=== PATIENT | female | born 1955 ===

== ENCOUNTER 2018-09-30 10:04 | Emergency (ER) | payer MEDICARE, MEDICAID, SELFPAY ==
--- NOTE | 2018-09-30 10:16 | NUR.NOTE ---
pt states that 3 days ago she noticed a slight pain in teeth 24 and 23 on Tuesday pain progressed to pulsating 9/10 pain upon awaking this morning pt states that pain is 10/10 and states that she feels swelling in her lower jaw focusing on that tooth and radiating to both cheeks. teeth are both loose Nursing Note:
[2018-09-30 10:20] VITALS: BP 136/85; PULSE 93; RESP 16; TEMP 37.2; O2SAT 95
--- NOTE | 2018-09-30 11:11 | W.ED.GENAD ---
Discharge Plan Disposition Patient Disposition: HOME Condition: Stable Discharge Details Chief Complaint: DentalOral Clinical Impression: Dental abscess Primary Care Provider: Christie,Local ED Provider: Geetha Brannon Home Meds and New Rx's Prescriptions: New oxycodone-acetaminophen [Percocet] 5-325 mg tablet 1 tab PO Q8H PRN PRN (Reason: pain) Qty: 6 RF: 0 penicillin V potassium 500 mg tablet 500 mg PO QID Qty: 27 RF: 0 Discharge Instructions Instructions: Penicillin V (By mouth), Oxycodone/Acetaminophen (By mouth), Dental Abscess (ED) Additional Instructions: Please return to the emergency department if you develop any new or worsening symptoms or if you become otherwise concerned. It is extremely important that you make an appointment to be seen by your dentist and your primary care doctor as well as soon as possible in follow-up for this visit. Please do not take more than 2000 mg of Tylenol total on days that you are also taking Percocet. You may also take 400 mg of ibuprofen every 8 hours for pain. Do not drive, operate machinery, make important decisions, or take any other sedating drugs while you are taking Percocet. Discharge Data Discharge Date/Time-TO BE ENTERED AT DEPARTURE: 09/30/18 11:44 Medical Decision Making Raine Rooney is a 8-year-old woman with history of depression presenting to the emergency department 3 days of tooth pain and swelling of the associated gingiva. On exam there is erythema and edema of the gingiva surrounding tooth 23. There is no elevation of the tongue. Exam/history is not consistent with TPA, RPA, abscess, Deangelo's angina, other deep space infection, sepsis, impending airway compromise. Concern for dental infection. Plan for antibiotics. Patient reports that she has appointment with her dentist in 2 days. I had a lengthy discussion with patient regarding home care, return to emergency department precautions, and importance of outpatient follow-up with her dentist. She verbalized understanding of the plan and is amenable. Medical Records Medical records reviewed: Yes I reviewed the patient's medical records. HPI General Mode of arrival: ambulatory. Date/Time Provider Initiated Documentation: 09/30/18 11:11. Limitations to Documentation: no limitations. Information obtained by: patient, RN notes reviewed and old records reviewed. HPI Narrative: Raine Rooney is a 62-year-old woman with history of depression presenting to the emergency department with dental pain. Patient reports that 3 days ago she noticed that 1 of her lower teeth seemed loose and somewhat painful. She reports that pain has been increasing since that time, and she has noticed some swelling along her lower left gums in the area of the tooth. Patient reports that she has been eating and drinking as usual. She has not had any difficulty or pain swallowing. No drooling, no fevers, no facial swelling, no shortness of breath, no cough, no nausea/vomiting/diarrhea, no rash. Feels otherwise well in her usual state of health. No trauma to the mouth or tooth. Related Data Home Medications Medication Instructions Recorded Confirmed oxycodone-acetaminophen [Percocet] 1 tab PO Q8H PRN PRN #6 tab 09/30/18 penicillin V potassium 500 mg PO QID #27 tab 09/30/18 Previous Rx's Medication Instructions Recorded oxycodone-acetaminophen [Percocet] 1 tab PO Q8H PRN PRN #6 tab 09/30/18 penicillin V potassium 500 mg PO QID #27 tab 09/30/18 Allergies Allergy/AdvReac Type Severity Reaction Status Date / Time No Known Allergies Allergy Unverified 09/30/18 10:24 General Stated Complaint: DentalOral CHRIS: 3 Review of Systems Review of Systems Constitutional: denies fevers Eyes: denies eye pain ENT: denies facial pain, sore throat, reports dental pain Cardiovascular: denies chest pain Respiratory: denies SOB, cough GI: denies abdominal pain, vomiting, diarrhea : denies flank pain MSK: denies back pain, neck pain, arthralgias, myalgias Skin: denies rash Neuro: denies headaches, numbness, weakness [facility] Social History Smoking/Tobacco Use Status: Current every day Exam Narrative Exam Narrative: Constitutional: well and [id number], pleasant, conversing normally HENT: head atraumatic/normocephalic/normal inspection, mucous membranes moist. tooth 23 with mild laxity, associated gingiva with mild edema and erythema. No fluctuance, no abscess. Mild tenderness along left mandible without edema. No facial edema. No facial rash or skin changes. No other intraoral lesion. Posterior pharynx normal. Normal voice, handling secretions without issue. No elevation of the tongue. Eyes: conjunctiva normal, sclera normal, pupils 3mm b/l Neck: no stridor, normal ROM, trachea midline Resp: normal work of breathing, LCTAB Cardio: normal rate, normal rhythm, no murmur appreciated Skin: warm, dry, normal color, no rash Neuro: alert, not altered, grossly non-focal, normal tone Ext: Moving all extremities equally Psych: normal mood, normal affect, normal behavior Course Vital Signs Temperature 37.2 C 09/30/18 10:20 Pulse 93 H 09/30/18 10:20 Respiratory Rate 16 09/30/18 10:20 Blood Pressure 136/85 09/30/18 10:20 Pulse Oximetry 95 09/30/18 10:20 Temperature 37.2 C 09/30/18 10:20 Temperature Source Skin 09/30/18 10:20 Pulse 93 H 09/30/18 10:20 Respiratory Rate 16 09/30/18 10:20 Respiratory Effort 09/30/18 10:25 Blood Pressure 136/85 09/30/18 10:20 Blood Pressure Position Sitting 09/30/18 10:20 Pulse Oximetry 95 09/30/18 10:20 Oxygen Delivery Method Room Air 09/30/18 10:20 Oxygen Flow Rate 0 09/30/18 10:20 Pain Level 9 09/30/18 10:20
[2018-09-30] MEDS: Penicillin V POTASSIUM 500 MG TAB PO (11:37)
== END 2018-09-30 11:44 | disposition home or self-care (01) ==
LOC: ER 11:53
PROVIDERS: Emergency Provider Student in an Organized Health Care Education/Training Program
DX: R68.84 Jaw pain (principal); K04.7 Periapical abscess without sinus
CPT/HCPCS: 99283

== ENCOUNTER 2021-12-17 12:25 | Outpatient (REF) | payer MEDICAID, SELFPAY ==
[2021-12-17 13:39] LABS: TSH 0.82 uIU/mL (0.36-3.74)
[2021-12-17 14:13] LABS: Vitamin D 25 Total 16.2 ng/mL (30-100)
== END 2021-12-17 12:26 | disposition home or self-care (01) ==
LOC: NCHCN 12:25
PROVIDERS: Visit Provider Nurse Practitioner Family
DX: F32.1 Major depressive disorder, single episode, moderate (principal)
CPT/HCPCS: 82306; 84443

== ENCOUNTER 2022-02-02 16:20 | Outpatient (REF) | payer MEDICARE, MEDICAID, SELFPAY ==
[2022-02-02 15:51] LABS: BUN 15 mg/dL (7-18); CREATININE 0.8 mg/dL (0.55-1.02); Calcium 9.1 mg/dL (8.5-10.1); Calculated LDL 173 mg/dL (<100); Chloride 104 mmol/L (98-107); Cholesterol 268 mg/dL (<200); Glucose 101 mg/dL (74-106); HDL Cholesterol 50 mg/dL (40-60); Sodium 140 mmol/L (136-145); Triglyceride 225 mg/dL (<150)
== END 2022-02-02 16:21 | disposition home or self-care (01) ==
LOC: NCHCN 16:20
PROVIDERS: Visit Provider Nurse Practitioner Family
DX: Z00.00 Encounter for general adult medical examination without abnormal findings (principal); Z51.81 Encounter for therapeutic drug level monitoring
CPT/HCPCS: 80048; 80061

== ENCOUNTER 2023-01-13 12:19 | Outpatient (REF) | payer OTHER, MEDICAID, SELFPAY ==
[2023-01-13 15:13] LABS: HCT 37.4 % (36.0-46.0); HGB 12.2 g/dL (11.2-15.7); MCH 27.4 pg (27.0-33.0); MCHC 32.6 % (32.0-36.0); MCV 84 fL (80-95); MPV 9.2 fL (8.0-11.0); Platelet Count 274 10^3/uL (130-400); RBC 4.45 10^6/uL (3.93-5.22); RDW 13.5 % (11.7-14.6); RDW-SD 41.8 fL; WBC 4.43 10^3/uL (4.4-10.8)
[2023-01-13 15:51] LABS: Hemoglobin A1C 5.4 % (<5.7); Vitamin D 25 Total 18.3 ng/mL (30-100)
[2023-01-13 15:56] LABS: Calculated LDL 103 mg/dL (<100); Cholesterol 185 mg/dL (<200); Ferritin 22 ng/mL (8-252); Folate 18.1 ng/mL (8.6-20.0); HDL Cholesterol 44 mg/dL (40-60); Triglyceride 194 mg/dL (<150); Vitamin B12 608 pg/mL (193-986)
== END 2023-01-13 12:20 | disposition home or self-care (01) ==
LOC: NCHCN 12:19
PROVIDERS: Visit Provider Nurse Practitioner Family
DX: E78.9 Disorder of lipoprotein metabolism, unspecified (principal); F32.1 Major depressive disorder, single episode, moderate
CPT/HCPCS: 80061; 82306; 85027; 82607; 82728; 82746; 83036

== ENCOUNTER → 2023-04-21 03:35 | Outpatient (CLI) | payer OTHER, MEDICAID, SELFPAY ==
--- NOTE | 2023-04-21 13:00 | DI.DEXA_ITS ---
Exam(s) XR DEXA BONE DENSITY W/WO BRIANNA EXAM: XR DEXA BONE DENSITY W/WO BRIANNA CLINICAL HISTORY: menopausal z78.0 screening for osteoporosis z13.820 TECHNIQUE: COMPARISON: No exams were available for comparison FINDINGS: Lateral Spine Image: Unremarkable. No compression deformities identified. Left hip: Total T-Score: -1.0 Total Z-Score: 0.2 T- and Z-scores: Within normal limits. Lumbar Spine: Total T-Score: -0.8 Total Z-Score: 1.0 T- and Z-scores: Within normal limits. IMPRESSION: No evidence of osteoporosis.
== END ==
PROVIDERS: Visit Provider Nurse Practitioner Family
DX: Z78.0 Asymptomatic menopausal state (principal); Z13.820 Encounter for screening for osteoporosis
CPT/HCPCS: 77080

== ENCOUNTER 2023-10-12 17:55 | Outpatient (REF) | payer OTHER, MEDICAID, SELFPAY ==
[2023-10-12 15:57] LABS: Anion Gap 10.4 mmol/L (3-11); BUN 14 mg/dL (7-18); CO2 25.6 mmol/L (21.0-32.0); CREATININE 0.8 mg/dL (0.55-1.02); Calcium 9.3 mg/dL (8.5-10.1); Chloride 102 mmol/L (98-107); Estimated GFR 81.21 (mL/min/1.73m2); Glucose 98 mg/dL (74-106); Potassium 4.2 mmol/L (3.5-5.1); Sodium 138 mmol/L (136-145)
== END 2023-10-12 17:56 | disposition home or self-care (01) ==
LOC: NCHCN 17:55
PROVIDERS: Referring Provider Nurse Practitioner Family; Visit Provider Nurse Practitioner Family
DX: F32.89 Other specified depressive episodes (principal); Z51.81 Encounter for therapeutic drug level monitoring; Z79.899 Other long term (current) drug therapy
CPT/HCPCS: 80048; 83735